=== PATIENT | male | born 1940 | race Caucasian/White ===

== ENCOUNTER → 2017-09-10 | Outpatient (CLI) | payer MEDICARE | LOC: OD 10:56 | PROVIDERS: ATTEND Physician Assistant | DX: Z79.891 Long term (current) use of opiate analgesic (principal) | CPT/HCPCS: 36415 ==

== ENCOUNTER 2018-06-07 20:13 | Emergency (ER) | payer MEDICARE ==
[2018-06-07] MEDS ORDERED: RINGERS SOLUTION,LACTATED 1,000 ML IV ONE (20:50)
[2018-06-07] MEDS ORDERED: NORMAL SALINE 1000 ML 1,000 ML IV ONE (20:51)
[2018-06-07] MEDS ORDERED: ONDANSETRON HCL INJ/PF 4 MG/2 ML SDV IV ONE (20:51)
[2018-06-07] MEDS ORDERED: MORPHINE SULFATE 10 MG/ML INJ IV ONE (20:52)
--- NOTE | 2018-06-07 20:56 | ER Document Report ---
ED General - General Chief Complaint: Diarrhea Stated Complaint: N/V/D Time Seen by Provider: 06/07/18 20:35 Mode of Arrival: Medic Information source: Patient, [facility] Records Notes: 77-year-old male presents via EMS after an episode of severe nausea, vomiting, diarrhea and dizziness. Patient is on narcotic medications chronically for back pain and is in pain management. He states that he was recently given Naldemedine for opiate-induced constipation. He states he gave himself a suppository on Sunday and had a small bowel movement but then took this new medication today and states that he had multiple episodes of explosive diarrhea accompanied with nausea and vomiting and severe abdominal cramping. EMS reports that the patient was found and a large pool of stool, diaphoretic and vomiting. He did receive Zofran and 500 cc of normal saline prior to arrival. Upon my exam patient is denying nausea, vomiting, dizziness, abdominal pain. He is requesting something to drink and his nighttime pain medication. TRAVEL OUTSIDE OF THE [place] IN LAST 30 DAYS: No - HPI Onset: Just prior to arrival Onset/Duration: Sudden, Gone Quality of pain: Cramping Severity: Mild Associated symptoms: Diarrhea, Nausea, Vomiting Exacerbated by: Denies Relieved by: Denies Similar symptoms previously: No Recently seen / treated by doctor: Yes - Pain management 06/05/2018 - Related Data Allergies/Adverse Reactions: Penicillins Allergy (Severe, Verified 02/07/12 22:55) Hives Tetanus & Diphtheria Tox,Adult * [Tetanus & Diphtheria Tox,Adult] Allergy ( Severe, Verified 02/07/12 22:54) Hives Past Medical History - General Information source: Patient, Emergency Med Personnel, [facility] Records - Social History Smoking Status: Former Smoker Frequency of alcohol use: None Drug Abuse: None Lives with: Family Family History: Reviewed & Not Pertinent Patient has suicidal ideation: No Patient has homicidal ideation: No - Past Medical History Cardiac Medical History: Reports: Hx Hypercholesterolemia, Hx Hypertension Pulmonary Medical History: Denies: Hx Tuberculosis Neurological Medical History: Reports: Hx Cerebrovascular Accident. Denies: Hx Seizures GI Medical History: Denies: Hx Crohn's Disease, Hx Gastroesophageal Reflux Disease, Hx Hiatal Hernia, Hx Irritable Bowel, Hx Liver Failure, Hx Pancreatitis , Hx Ulcer Musculoskeletal Medical History: Reports Hx Arthritis, Denies Hx Multiple Sclerosis Psychiatric Medical History: Denies: Hx Dementia Past Surgical History: Reports: Hx Appendectomy. Denies: Hx Bowel Surgery, Hx Cholecystectomy, Hx Colostomy, Hx Coronary Artery Bypass Graft, Hx Gastric Bypass Surgery, Hx Herniorrhaphy, Hx Pacemaker, Hx Tonsillectomy - Immunizations Hx Diphtheria, Pertussis, Tetanus Vaccination: Yes Review of Systems - Review of Systems Notes: REVIEW OF SYSTEMS: CONSTITUTIONAL : Denies fever, chills, or sweats. Denies recent illness. Denies weight loss, recent hospitalizations. EENT: Denies visual changes, eye pain. Denies nasal or sinus congestion or discharge. Denies sore throat, oral lesions, difficulty swallowing. CARDIOVASCULAR: Denies chest pain. Denies palpitations. Denies lower extremity edema. RESPIRATORY: Denies cough, cold, or chest congestion. Denies shortness of breath, wheezing. GASTROINTESTINAL: Denies abdominal pain or distention. Denies blood in vomitus , stools, or per rectum. Denies black, tarry stools. Denies constipation. GENITOURINARY: Denies difficulty urinating, painful urination, frequency, blood in urine, or vaginal discharge. MUSCULOSKELETAL: Denies back or neck pain or stiffness. Denies joint pain or swelling. SKIN: Denies rash, lesions or sores. HEMATOLOGIC : Denies easy bruising or bleeding. LYMPHATIC: Denies swollen glands. NEUROLOGICAL: Denies confusion or altered mental status. Denies passing out or loss of consciousness. Denies dizziness or lightheadedness. Denies headache. Denies weakness or paralysis. Denies problems difficulty with ambulation, slurred speech. Denies sensory loss, numbness, or tingling. Denies seizures. PSYCHIATRIC: Denies anxiety or stress. Denies depression, suicidal ideation, or homicidal ideation. Denies visual or auditory hallucinations. Physical Exam - Vital signs Vitals: BP 132/95 H 06/07/18 20:13 Interpretation: No: Hypotensive, Hypertensive, Tachycardic - Notes Notes: PHYSICAL EXAMINATION: GENERAL: Well-appearing, well-nourished and in no acute distress. HEAD: Atraumatic, normocephalic. EYES: Pupils equal round and reactive to light, extraocular movements intact, sclera anicteric, conjunctiva are normal. ENT: Nares patent, oropharynx clear without exudates. Moist mucous membranes. NECK: Normal range of motion, supple without lymphadenopathy LUNGS: Breath sounds clear to auscultation bilaterally and equal. No wheezes rales or rhonchi. HEART: Regular rate and rhythm without murmurs ABDOMEN: Soft, nontender, nondistended abdomen. No guarding, no rebound. No masses appreciated. Musculoskeletal: Normal range of motion, no pitting or edema. No cyanosis. NEUROLOGICAL: Cranial nerves grossly intact. Normal speech, normal gait. Normal sensory, motor exams PSYCH: Normal mood, normal affect. SKIN: Warm, Dry, normal turgor, no rashes or lesions noted. Course - Re-evaluation Re-evalutation: Laboratory 06/07/18 19:35 Sodium 140.8 Potassium 4.2 Chloride 101 Carbon Dioxide 24 Anion Gap 16 BUN 29 H Creatinine 1.22 Est GFR ( Amer) > 60 Est GFR (Non-Af Amer) 57 L Glucose 146 H Calcium 10.4 H 06/07/18 22:22 77-year-old male presents via EMS after an episode of severe nausea, vomiting, diarrhea and dizziness. Patient is on narcotic medications chronically for back pain and is in pain management. He states that he was recently given Naldemedine for opiate-induced constipation. He states he gave himself a suppository on Sunday and had a small bowel movement but then took this new medication today and states that he had multiple episodes of explosive diarrhea accompanied with nausea and vomiting and severe abdominal cramping. EMS reports that the patient was found and a large pool of stool, diaphoretic and vomiting. He did receive Zofran and 500 cc of normal saline prior to arrival. Upon my exam patient is denying nausea, vomiting, dizziness, abdominal pain. He is requesting something to drink and his nighttime pain medication. Patient was seen by myself upon arrival. Vital signs were reviewed. Patient is afebrile , normotensive and not hypoxic. Patient does not appear toxic or dehydrated. They are in no acute distress. Previous medical records and nursing notes reviewed. Patient received IV fluids, Zofran, Reglan, GI cocktail during his ED course. BMP shows mildly elevated BUN and calcium. Previous review of calcium levels show that this is his baseline. He is tolerating fluids. He has had no episodes of hypotension, abdominal pain, vomiting or diarrhea since arriving to the emergency department. Side effects of Naldemedine are known to be nausea, vomiting, abdominal cramping and diarrhea. Patient provided the opportunity to ask questions, and express concerns. Discharge instructions discussed. Patient is agreeable with discharge home. Return indications explained and discussed with the patient who displays understanding. Patient encouraged to return to the emergency department immediately with any concerns. 06/07/18 22:22 06/07/18 23:43 - Vital Signs Vital signs: Temp Pulse Resp BP Pulse Ox 15 110/66 93 06/07/18 22:01 06/07/18 22:01 06/07/18 22:01 - Laboratory Result Diagrams: 06/07/18 19:35 Laboratory results interpreted by me: 06/07/18 19:35 BUN 29 H Est GFR (Non-Af Amer) 57 L Glucose 146 H Calcium 10.4 H Discharge - Discharge Clinical Impression: Nausea vomiting and diarrhea, Abdominal cramping, Chronic prescription opiate use Medication reaction Qualifiers: Encounter type: initial encounter Qualified Code(s): T50.905A - Adverse effect of unspecified drugs, medicaments and biological substances, initial encounter Chronic back pain Qualifiers: Back pain location: thoracic back pain Back pain laterality: unspecified Qualified Code(s): M54.6 - Pain in thoracic spine Condition: Good Disposition: HOME, SELF-CARE Instructions: Antinausea Medication ([facility]), Diarrhea, Nonspecific ([facility]), Intravenous (IV) Fluids ([facility]), Vomiting ([facility]) Additional Instructions: Please let your pain management doctor know the reaction that you had to the Naldemedine. Referrals: AMBREEN CHADWICK MD [ACTIVE STAFF] - Follow up as needed
[2018-06-07 21:47] LABS: ANION GAP 16 (5-19); BLOOD UREA NITROGEN 29 mg/dL (7-20); CALCIUM 10.4 mg/dL (8.4-10.2); CARBON DIOXIDE 24 mmol/L (22-30); CHLORIDE 101 mmol/L (98-107); GLUCOSE 146 mg/dL (75-110); POTASSIUM 4.2 mmol/L (3.6-5.0); SODIUM 140.8 mmol/L (137-145)
[2018-06-07] MEDS ORDERED: METOCLOPRAMIDE HCL INJ/PF 10 MG/2 ML SDV IV ONE (22:20)
[2018-06-07] MEDS ORDERED: MAG HYDROX/AL HYDROX/SIMETH SUSP 30 ML UDCUP PO ONE (22:24)
[2018-06-07] MEDS ORDERED: LIDOCAINE 2% VISCOUS SOLN 20 ML UDCUP PO ONE (22:24)
[2018-06-07] MEDS ORDERED: METOCLOPRAMIDE HCL ORAL SOLN 10 MG/10 ML UDCUP PO ONE (22:24)
[2018-06-07] MEDS ORDERED: ONDANSETRON ODT 4 MG TAB (6 TAB/ER DISP) PO PRN (22:59)
[2018-06-08 00:06] VITALS: BP 108/73
[2018-06-08] MEDS ORDERED: ONDANSETRON ODT 4 MG TAB (6 TAB/ER DISP) PO PRN (00:09)
== END 2018-06-08 00:28 | disposition home or self-care (01) ==
LOC: ER 20:13
DX: T40.605A Adverse effect of unspecified narcotics, initial encounter (principal); M54.6 Pain in thoracic spine; R19.7 Diarrhea, unspecified; R11.2 Nausea with vomiting, unspecified; R10.9 Unspecified abdominal pain; R42 Dizziness and giddiness; K59.03 Drug induced constipation; Y92.9 Unspecified place or not applicable; Z79.899 Other long term (current) drug therapy; Z87.891 Personal history of nicotine dependence; I10 Essential (primary) hypertension
CPT/HCPCS: 99284; 96361; 96374; 96375; 36415; 80048; J3490; A9270 ×2; J2270; J2405; J7030